=== PATIENT | female | born 1960 | race Caucasian/White ===

== ENCOUNTER 2016-11-17 06:21 | Emergency (ER) | payer BC ==
[2016-11-17] MEDS ORDERED: KETOROLAC 60 MG/2 ML VIAL IVP STA (07:07)
[2016-11-17] MEDS ORDERED: diphenhydrAMINE 50 MG/ML 1 ML VIAL IVP STA (07:07)
[2016-11-17] MEDS ORDERED: PROMETHAZINE INJ 25 MG/ML 1 ML VIAL IM STA (07:07)
[2016-11-17] MEDS ORDERED: SODIUM CHLORIDE 0.9% 500 ML IV ONE (07:10)
--- NOTE | 2016-11-17 07:10 | ED ---
General Adult HPI - General Chief complaint: Headache Stated complaint: Headache Time Seen by Provider: 11/17/16 07:00 Source: patient, family, RN notes reviewed Mode of arrival: ambulatory Limitations: no limitations - History of Present Illness Initial comments: This is a 56-year-old female sent to the emergency department with a past medical history significant for multiple episodes of occipital neuralgia. Patient states she's just moved to [place] from [place]. Patient states the pain as starting in the right occipital region and radiates to the parietal region of the head. This is typical of her occipital neuralgia Patient states she has no vomiting but she is mildly nauseated. Patient states does have some light sensitivity. Patient states in the past Tegretol is worked but she did not like the side effects. Patient denies any fevers or chills patient denies any neck stiffness. Patient denies any chest pain difficulty breathing or shortness of breath per patient denies abdominal pain patient denies any dysuria hematuria urinary frequency. - Related Data Home Medications Medication Instructions Recorded Confirmed Albuterol Inhaler [Ventolin Hfa 1 - 2 puff INHALATION RT-Q6H PRN 11/17/16 Inhaler] Aspirin 81 mg PO HS 11/17/16 11/17/16 Cinnamon/Chromium 1000mg/400mcg 2 tab PO DAILY 11/17/16 11/17/16 Desvenlafaxine Succinate [Pristiq] 50 mg PO DAILY 11/17/16 11/17/16 Estradiol 0.5 mg PO DAILY 11/17/16 11/17/16 Fenofibrate [Lofibra] 160 mg PO HS 11/17/16 11/17/16 Hydrochlorothiazide [Hydrodiuril] 25 mg PO DAILY 11/17/16 11/17/16 Levothyroxine Sodium [Synthroid] 50 mcg PO DAILY 11/17/16 11/17/16 Losartan [Cozaar] 50 mg PO DAILY 11/17/16 11/17/16 Metoprolol Succinate (ER) [Toprol 100 mg PO DAILY 11/17/16 11/17/16 Xl] Montelukast Sodium [Singulair] 10 mg PO HS 11/17/16 11/17/16 Naltrexone HCl/Bupropion HCl 1 tab PO BID 11/17/16 11/17/16 [Contrave ER 8-90 mg Tablet] [place]-3 Fatty Acids/Fish Oil [Fish 1 cap PO BID 11/17/16 11/17/16 Oil 1,000 mg Softgel] Potassium Chloride [Klor-Con 10] 10 meq PO DAILY 11/17/16 11/17/16 Ubidecarenone [Co Q-10] 200 mg PO HS 11/17/16 11/17/16 glipiZIDE [Glucotrol] 5 mg PO DAILY 11/17/16 11/17/16 Allergies Allergy/AdvReac Type Severity Reaction Status Date / Time morphine Allergy Nausea & Verified 11/17/16 07:26 Vomiting Review of Systems ROS Statement: Those systems with pertinent positive or pertinent negative responses have been documented in the HPI. ROS Other: All systems not noted in ROS Statement are negative. Past Medical History Past Medical History: Diabetes Mellitus, Hyperlipidemia, Hypertension, Thyroid Disorder Additional Past Medical History / Comment(s): headaches, depression History of Any Multi-Drug Resistant Organisms: None Reported Past Surgical History: Hysterectomy Past Psychological History: Anxiety, Depression Smoking Status: Former smoker Past Alcohol Use History: Occasional Past Drug Use History: None Reported General Exam - General Exam Comments Initial Comments: GENERAL: Patient is well-developed and well-nourished. Patient is nontoxic and well- hydrated and is in mild distress. ENT: Neck is soft and supple. No significant lymphadenopathy is noted. Oropharynx is clear. Moist mucous membranes. Neck has full range of motion without eliciting any pain. EYES: The sclera were anicteric and conjunctiva were pink and moist. Extraocular movements were intact and pupils were equal round and reactive to light. Eyelids were unremarkable. PULMONARY: Unlabored respirations. Good breath sounds bilaterally. No audible rales rhonchi or wheezing was noted. CARDIOVASCULAR: There is a regular rate and rhythm without any murmurs gallops or rubs. ABDOMEN: Soft and nontender with normal bowel sounds. No palpable organomegaly was noted. There is no palpable pulsatile mass. SKIN: Skin is clear with no lesions or rashes and otherwise unremarkable. NEUROLOGIC: Patient is alert and oriented x3. Cranial nerves II through XII are grossly intact. Motor and sensory are also intact. Normal speech, volume and content. Symmetrical smile. MUSCULOSKELETAL: Normal extremities with adequate strength and full range of motion. PSYCHIATRIC: Normal psychiatric evaluation. Normal interpersonal interactions appears functionally intact in deals appropriately with others. No signs of depression. No signs of anxiety. Limitations: no limitations Course Vital Signs 11/17/16 11/17/16 06:23 08:19 Temperature 97 F L 98.1 F Pulse Rate 81 78 Respiratory 20 15 Rate Blood Pressure 184/84 172/79 O2 Sat by Pulse 97 98 Oximetry Medical Decision Making - Medical Decision Making I have gone back into the room on 2 different occasions to evaluate the patient after medicines were given. Patient was sleeping when I entered the room when I awoke her I asked her what her pain level was and she said it was only slightly improved on both occasions. I ordered some DHE for the patient and when I went back by the room again the patient was again sleeping he was at this time I told her that after she received the DHE she would be going home Disposition Clinical Impression: Acute headache Disposition: HOME SELF-CARE Condition: Good Instructions: Acute Headache (ED) Additional Instructions: Patient should stop taking her new medication for weight loss Referrals: Nonstaff,Physician [Primary Care Provider] - 1-2 days Time of Disposition: 08:24
[2016-11-17] MEDS ORDERED: DIHYDROERGOTAMINE MESYLATE 1 MG/ML 1 ML AMP IVP STA (08:18)
[2016-11-17] MEDS ORDERED: ACETAMINOPHEN IV (For NPO) 1,000 MG in SALINE 100 100ML.BAG IVPB STA (08:50)
[2016-11-17 10:24] VITALS: BP 141/62; PULSE 68; RESP 14; TEMP 97.1
--- NOTE | 2016-11-17 10:28 | CT ---
EXAMINATION TYPE: CT brain wo con DATE OF EXAM: 11/17/2016 10:17 AM COMPARISON: NONE HISTORY: Patient complains of right side headache. CT DLP: 945.5 mGycm. Automated Exposure Control for Dose Reduction was Utilized. TECHNIQUE: CT scan of the head is performed without contrast. FINDINGS: There is no acute intracranial hemorrhage, mass effect, or midline shift identified. The ventricles and sulci are within normal limits in size. The globes are intact and the visualized sin uses are clear. IMPRESSION: No acute intracranial hemorrhage, mass effect, or midline shift is seen.
== END 2016-11-17 10:54 | disposition home or self-care (01) ==
LOC: EC 06:21
DX: R51 Headache (principal); E11.9 Type 2 diabetes mellitus without complications; E78.5 Hyperlipidemia, unspecified; I10 Essential (primary) hypertension; E07.9 Disorder of thyroid, unspecified; F32.9 Major depressive disorder, single episode, unspecified; F41.9 Anxiety disorder, unspecified; Z87.891 Personal history of nicotine dependence; Z79.82 Long term (current) use of aspirin; Z79.899 Other long term (current) drug therapy; Z79.3 Long term (current) use of hormonal contraceptives; Z79.84 Long term (current) use of oral hypoglycemic drugs; Z88.5 Allergy status to narcotic agent
CPT/HCPCS: 96375 ×4; 96361 ×2; 96372 ×2; 96374 ×2; 99284 ×2; 70450; J1110; J1200; J2550; J1885; J0131

== ENCOUNTER → 2018-04-08 | Outpatient (CLI) | payer BC ==
--- NOTE | 2018-04-08 20:06 | CONS ---
CONSULTATION DATE OF SERVICE: 04/08/2018. HISTORY: A 57-year-old lady, has been evaluated in Sleep Center for obstructive sleep apnea- hypopnea syndrome. HISTORY OF PRESENT ILLNESS/SLEEP-AWAKE EVALUATION: The patient has been diagnosed with obstructive sleep apnea-hypopnea syndrome in [place] in around 2011. Since that time she is on treatment with CPAP every night for the whole night. Without CPAP she snores and has episodes of stopped breathing. With CPAP, she sleeps well without snoring. Sleep schedule presently is from around 1:30 a.m. until 9 a.m. on weekdays and from 11:00 p.m. to 9:00 a.m. on weekends. No problems with falling asleep, although she has TV set in bedroom. She sleeps usually on the back position. She may have episodes of dry mouth and sweating, may wake up from sleep once with nocturia. Sometimes she sees vivid dreams, usually in the morning hours. Sometimes during extreme laughter she may feel some weakness in her body. [place] Sleepiness Scale is 6, which is in normal range. PAST MEDICAL HISTORY: Positive for stroke in 2007 with left-sided weakness at that time, hypothyroidism, hypertension, diabetes, hyperlipidemia, asthma. MEDICATIONS: 1. Synthroid. 2. Metoprolol. 3. Klor-Con. 4. Fenofibrate. PAST SURGICAL HISTORY: Partial hysterectomy in 2009. SOCIAL HISTORY: Positive for smoking up to 2 packs per day for 20 years, quit around 9 years ago. Alcohol consumption occasional. FAMILY HISTORY: Hypertension, hyperlipidemia, stroke, asthma, sinus headaches, sleep apnea, pneumonia, thyroid problem, diabetes, liver problems, ulcers. REVIEW OF SYSTEMS: Presently no significant complaints. The patient does not offer any physical complaints. The patient denies any rashes or other skin problems. The patient does not report any joint pain, swelling, or restriction of movement. The patient denies any headaches, any visual problems, hearing loss, sore throat. Denies any pain on breathing, shortness of breath, cough, wheezing, hemoptysis, night sweats. The patient also denies chest pain or distress, palpitations, dyspnea, orthopnea, edema, history of hypertension, history of myocardial infarction. Denies nausea, vomiting, diarrhea, hematemesis, and melena. Denies hemorrhoids or ulcers. Denies any genitourinary problems. Does not report any history of seizures. PHYSICAL EXAMINATION: The patient is a lady, without distress. VITAL SIGNS: Blood pressure 141/73, HR 88, RR 16, height 5 feet 4-1/2 inches, weight is 257, BMI 43.4, temperature 98.0, oxygen saturation on room air 97%. HEENT: Oropharynx low position of soft palate. Slight restriction of nasal breathing. NECK: 15-1/2 inches in circumference. LUNGS: Clear to auscultation bilaterally. HEART: S1, S2 can be heard, no gallops, rubs, or murmurs. ABDOMEN: Obese, soft, nontender, no organomegaly, bowel sounds are heard in all four quadrants. EXTREMITIES: No cyanosis, clubbing, or edema, peripheral pulses are palpable. CRANIAL NERVES: II to XII are intact. FLEET SERVICE CLERK: There are no gross sensory or motor deficits, DTRS 2+ bilaterally. MUSCULOSKELETAL: Muscle strength is symmetrical. IMPRESSION: 1. History of obstructive sleep apnea-hypopnea syndrome for 7 years. The patient is on treatment with CPAP every night, reading from machine indicated 100% compliance with treatment, benefitting from treatment. Normal breathing while patient is on machine by the reading from the machine. Apnea-hypopnea index 1.1. CPAP pressure is 13 cm of water. Average usage per night, 8.9 hours. 2. Obesity, BMI 43.4. 3. History of stroke in 2007 without significant residual deficit. 4. Hypothyroidism. 5. Hypertension. 6. Diabetes mellitus. 7. Hyperlipidemia. 8. History of asthma. PLAN: 1. Patient will continue to use his CPAP equipment every night for the whole night with the same pressure. 2. Losing weight. 3. Sleep hygiene with time in bed for at least 8 hours. 4. No driving if feeling sleepiness. 5. Prescription for all necessary CPAP supplies and clinic mask tube filters. Thank you very much for allowing me to participate in management of the patient. Sincerely, Liang Roth MD, PhD, FAASM Diplomat of [place] [employer] [place] [employer] Automotive Window Tinter of [facility] [place] MMODL / IJN: [id number] /
== END | disposition home or self-care (01) ==
LOC: SLEEP 16:12
PROVIDERS: ATTEND Internal Medicine
DX: G47.33 Obstructive sleep apnea (adult) (pediatric) (principal); E03.9 Hypothyroidism, unspecified; E11.9 Type 2 diabetes mellitus without complications; I10 Essential (primary) hypertension; E78.5 Hyperlipidemia, unspecified; E66.9 Obesity, unspecified; Z68.41 Body mass index [BMI] 40.0-44.9, adult; Z87.09 Personal history of other diseases of the respiratory system; Z86.73 Personal history of transient ischemic attack (TIA), and cerebral infarction without residual deficits; Z90.710 Acquired absence of both cervix and uterus; Z87.891 Personal history of nicotine dependence; Z79.899 Other long term (current) drug therapy; Z99.89 Dependence on other enabling machines and devices
CPT/HCPCS: 99211

== ENCOUNTER → 2019-05-12 | Outpatient (CLI) | payer BC ==
--- NOTE | 2019-05-12 17:23 | PN ---
PROGRESS NOTE DATE OF SERVICE: 05/12/2019 This patient is a 58-year-old lady who has been followed in Sleep Center for treatment of obstructive sleep apnea-hypopnea syndrome. Patient successfully continues to use her CPAP equipment every night for the whole night. She likes her mask but feels that the size of the mask should be slightly smaller. [place] Sleepiness Scale today is 4, which is normal. I checked her CPAP unit. CPAP pressure is 13 cm of water. Usage is every night for more than 4 hours with average usage 8.1 hours. For 365 nights, the patient used it 363 nights, which is great compliance. Leak is 70 L/minute, which is acceptable. Apnea- hypopnea index is only 1.4, which is absolutely normal. MEDICATIONS: 1. Synthroid. 2. Metoprolol. 3. Fenofibrate. 4. Losartan. 5. Desvenlafaxine. 6. Cinnamon. 7. Contrave. 8. Hydrochlorothiazide. 9. Glipizide. 10.Estradiol. 11.Montelukast. 12.Simvastatin. 13.Aspirin. 14. . 15.Ventolin. 16.Lasix. PHYSICAL EXAMINATION: GENERAL: A pleasant patient in no distress. VITAL SIGNS: BP 124/78, HR 76, RR 16, height 5 feet 4 inches, weight 250 pounds, which is 7 pounds less than during the last visit, body mass index 42.5, temperature 97.5, oxygen saturation at room air 98%. HEENT: PERRLA, EOMI. Evaluation of oropharynx showed tongue protrudes midline. Low position of soft palate. Mallampati III. NECK: Supple. No JVD. Thyroid is not palpable. LUNGS: Clear to percussion and to auscultation. Good air exchange. No wheezing or rhonchi. HEART: S1, S2 regular. No murmurs, gallops or rubs. ABDOMEN: Obese. EXTREMITIES: No clubbing or cyanosis. ORACLE HYPERION CONSULTANT: Awake, alert, and oriented X3. Cranial nerves 2 to 7 intact. There is no fasciculation or atrophy. noted. No focal deficits observed. IMPRESSION: 1. Obstructive sleep apnea-hypopnea syndrome. The patient demonstrated 100% compliance with treatment, benefitting from treatment. 2. Obesity. 3. History of stroke in 2007 without significant residual deficit. 4. Hypothyroidism. 5. Hypertension. 6. Diabetes mellitus. 7. Hyperlipidemia. 8. History of asthma. PLAN: 1. Patient will continue to use her CPAP equipment every night for the whole night. 2. We will try Simplus full-face mask but small size. 3. Prescription for all necessary CPAP supplies, including mask, heated tube and filters. 4. Losing weight. 5. No driving if feeling any sleepiness. 6. Follow-up visit in one year, or earlier if patient has any problems. Thank you very much for allowing me to participate in the management of your patient. Sincerely, Liang Roth MD, PhD, FAASM Diplomat of [employer] Fishing Instructor of [facility] [place] MMODL / IJN: [id number] /
== END | disposition home or self-care (01) ==
LOC: SLEEP 15:47
PROVIDERS: ATTEND Internal Medicine
DX: G47.33 Obstructive sleep apnea (adult) (pediatric) (principal); E66.9 Obesity, unspecified; E03.9 Hypothyroidism, unspecified; I10 Essential (primary) hypertension; E78.5 Hyperlipidemia, unspecified; E11.9 Type 2 diabetes mellitus without complications; Z68.41 Body mass index [BMI] 40.0-44.9, adult; Z87.09 Personal history of other diseases of the respiratory system; Z86.73 Personal history of transient ischemic attack (TIA), and cerebral infarction without residual deficits; Z99.89 Dependence on other enabling machines and devices; Z79.82 Long term (current) use of aspirin; Z79.84 Long term (current) use of oral hypoglycemic drugs; Z79.52 Long term (current) use of systemic steroids; Z79.899 Other long term (current) drug therapy

== ENCOUNTER → 2020-08-01 | Outpatient (CLI) | payer BC ==
--- NOTE | 2020-08-02 00:44 | SFUN ---
SLEEP CENTER FOLLOW UP NOTE DATE OF SERVICE: 08/01/2020 A 59-year-old lady had been followed in sleep center for treatment of obstructive sleep apnea-hypopnea syndrome. Patient continued to use her CPAP equipment every night for the whole night. Sleeps well with the machine, changing her mask. [place] Sleepiness Scale today is 8. I checked her CPAP unit. CPAP pressure is 13 cm of water. Usage is 30 out of 30 nights for more than 4 hours. Average usage 11 hours per night. Leak is 11 L/minute. Apnea- hypopnea index 1.6, which is normal. Recently, patient had surgery and she explained that she sleeps more because of the surgery recently. MEDICATIONS: Synthroid 75 mcg once a day, fenofibrate 160 mg once a day, losartan 50 mg once a day, Klor-Con 10 mEq once a day, metoprolol 100 mg once a day, Estradiol 0.5 mg once a day, desvenlafaxine 50 mg once a day, Singulair 10 mg once a day, simvastatin 20 mg once a day, glipizide 5 mg once a day, hydrochlorothiazide 25 mg once a day, Trulicity 1.5 mg once a week. PHYSICAL EXAMINATION: GENERAL: Patient in no distress. VITAL SIGNS: BP 167/77, HR 75, RR 15, height 5 feet 5 inches, weight 250, BMI 41.6, temperature 98.3, oxygen saturation at room air 100%. HEENT: PERRLA, EOMI. Oropharynx low position of soft palate, Mallampati 3. NECK: Supple, no JVD. Thyroid is not palpable. LUNGS: Clear to percussion and to auscultation. Good air exchange. No wheezing or rhonchi. HEART: S1, S2 regular. No murmurs, gallops, or rubs. ABDOMEN: Obese. EXTREMITIES: No clubbing or cyanosis. SENIOR CONTROLS ENGINEER: Awake, alert, and oriented X3. Cranial nerves 2 to 7 intact. There is no fasciculation or atrophy. noted. No focal deficits observed. IMPRESSION: 1. Obstructive sleep apnea-hypopnea syndrome. The patient demonstrated great compliance with treatment benefitting from treatment. 2. Obesity. 3. History of stroke in 2007 without residual deficit. 4. Hypertension. 5. Hypothyroidism. 6. Diabetes mellitus. 7. Hyperlipidemia. 8. History of asthma. PLAN: 1. Patient will continue to use PAP equipment every night for the whole night. 2. Sleep hygiene with regular time in bed for at least 7-1/2 to 8 hours. 3. Precautions related to driving. No driving if feeling sleepiness. 4. I will maintain all necessary prescription for PAP supplies including mask, tube, filters. 5. Watching weight. 6. No driving if feeling sleepiness. 7. Follow-up visit in 6 months or earlier if patient has any problems. Thank you very much for allowing me to participate in management of your patient. Sincerely, Liang Roth MD, PhD, FAASM Diplomat of [place] [employer] [employer] Principal Network Architect of [facility] [place] MMODL / IJN: [id number] /
== END | disposition home or self-care (01) ==
LOC: SLEEP 14:24
PROVIDERS: ATTEND Internal Medicine
DX: G47.33 Obstructive sleep apnea (adult) (pediatric) (principal); E66.9 Obesity, unspecified; I10 Essential (primary) hypertension; E03.9 Hypothyroidism, unspecified; E11.9 Type 2 diabetes mellitus without complications; E78.5 Hyperlipidemia, unspecified; Z99.89 Dependence on other enabling machines and devices; Z86.73 Personal history of transient ischemic attack (TIA), and cerebral infarction without residual deficits; Z87.09 Personal history of other diseases of the respiratory system

== ENCOUNTER → 2021-03-13 | Outpatient (CLI) | payer BC ==
--- NOTE | 2021-03-13 21:46 | SFUN ---
SLEEP CENTER FOLLOW UP NOTE DATE OF SERVICE: 03/13/2021 A 60-year-old lady has been followed in Sleep Center for treatment of obstructive sleep apnea-hypopnea syndrome. The patient continues to use her CPAP equipment every night and getting her supplies in time. No snoring on CPAP. [place] Sleepiness Scale today is 9, which is close to the border. I checked her CPAP unit. Pressure is 13 cm of water. Usage is 30/30 nights for more than 4 hours with average usage 8.5 hours per night, which is great compliance. Leak is 13 L/minutes which is borderline. Apnea-hypopnea index is 1.5, which is perfect. MEDICATIONS: Synthroid 75 mcg once a day. Losartan 50 mg once a day. Simvastatin 20 mg once a day. Montelukast 10 mg once a day. Bupropion 150 mg twice a day. Trulicity 1.5 mg subcutaneous injection once a week, 50 mg once a day, hydrochlorothiazide 25 mg once a day. Metoprolol 100 mg once a day. 0.5 mg once a day. Fenofibrate 160 mg once a day, albuterol on p.r.n. basis, glipizide 5 mg on p.r.n. basis. PHYSICAL EXAMINATION: GENERAL: Patient in no distress. BP 155/74, HR 74, RR 15, height 5 feet 5 inches, weight 249.6, which is about the same as a during the last visit. Body mass index 41.4, temperature 97.5, oxygen saturation at room air 98%. HEENT: PERRLA, EOMI, evaluation of oropharynx showed oropharynx low position of soft palate. Mallampati 3. NECK: Supple, no JVD. Thyroid is not palpable. LUNGS: Clear to percussion and to auscultation. Good air exchange. No wheezing or rhonchi. HEART: S1, S2 regular. No murmurs, gallops, or rubs. ABDOMEN: Obese. Soft and nontender. Bowel sounds are present. No organomegaly appreciated. EXTREMITIES: No clubbing or cyanosis. LODGE ATTENDANT: Awake, alert, and oriented X3. Cranial nerves 2 to 7 intact. There is no fasciculation or atrophy. noted. No focal deficits observed. IMPRESSION: 1. Obstructive sleep apnea-hypopnea syndrome. Patient demonstrated 100% compliance with treatment benefitting from treatment. 2. Obesity. 3. History of stroke in 2007 without residual deficit. 4. Hypertension. 5. Hypothyroidism. 6. Diabetes mellitus. 7. Hyperlipidemia. 8. History of asthma. PLAN: 1. Patient should change position of her CPAP unit, which should stay lower than her head otherwise it may increase risk of choking with the water, which may go to the nose. 2. Patient will continue to use PAP equipment every night for the whole night. 3. Sleep hygiene with regular time in bed for at least 7-1/2 to 8 hours. 4. Precautions related to driving. No driving if feeling sleepiness. 5. I will maintain all necessary prescription for PAP supplies including mask, tube, filters. 6. Watching weight. 7. Follow-up visit in 6 months or earlier if patient has any problems. I spent with the patient and the documentation of her visit for more than 30 minutes. Thank you very much for allowing me to participate in management of your patient. Sincerely, Liang Roth MD, PhD, FAASM Diplomat of [place] [employer] Shellfish Dredge Operator of [facility] [place] MMODL / FELTONN: [id number] /
== END ==
LOC: SLEEP 14:27
PROVIDERS: ATTEND Internal Medicine
DX: G47.33 Obstructive sleep apnea (adult) (pediatric) (principal); E66.9 Obesity, unspecified; I10 Essential (primary) hypertension; E03.9 Hypothyroidism, unspecified; E78.5 Hyperlipidemia, unspecified; E11.9 Type 2 diabetes mellitus without complications; J45.909 Unspecified asthma, uncomplicated; Z86.73 Personal history of transient ischemic attack (TIA), and cerebral infarction without residual deficits; Z79.4 Long term (current) use of insulin; Z79.899 Other long term (current) drug therapy; Z99.81 Dependence on supplemental oxygen; Z87.891 Personal history of nicotine dependence; Z88.5 Allergy status to narcotic agent

== ENCOUNTER → 2021-10-10 | Outpatient (CLI) | payer BC ==
--- NOTE | 2021-10-10 17:30 | SFUN ---
SLEEP CENTER FOLLOW UP NOTE DATE OF SERVICE: 10/10/2021 61-year-old lady has been followed in Sleep Center for treatment of obstructive sleep apnea-hypopnea syndrome. Patient continued to use his CPAP equipment every night, getting his CPAP supplies in time. [place] Sleepiness Scale today is 7. I checked CPAP unit. Pressure is 13 cm of water, usage 30/30 nights for more than 4 hours. Average usage 9.3 hours per night. Leak is 11 L/minute, which is normal range. Apnea-hypopnea index is 1.2 which is also normal. MEDICATIONS: Glipizide 5 mg twice a day, hydrochlorothiazide 25 mg once a day, losartan 50 mg once a day, metoprolol 100 mg once a day. Pristiq 50 mg once a day. Wellbutrin 150 mg once a day, aspirin 81 mg once a day, Estrogel 0.5 mg once a day, Synthroid 75 mcg once a day, fenofibrate 160 mg once a day, simvastatin 20 mg once a day, montelukast 10 mg once a day. PHYSICAL EXAMINATION: GENERAL: Patient in no distress. BP 161/86, HR 78, RR 16, height 5 feet 5 inches, weight 254 pounds body mass index 42.2. The patient increased her weight on about 5 pounds since previous visit. Temperature 98.0, oxygen saturation at room air 98%. Oropharynx: Low position of soft palate, Mallampati 3. NECK: Supple, no JVD. Thyroid is not palpable. LUNGS: Clear to percussion and to auscultation. Good air exchange. No wheezing or rhonchi. HEART: S1, S2 regular. No murmurs, gallops, or rubs. ABDOMEN: Obese. Soft and nontender. Bowel sounds are present. No organomegaly appreciated. EXTREMITIES: No clubbing or cyanosis. LAWYER REAL ESTATE: Awake, alert, and oriented X3. Cranial nerves 2 to 7 intact. There is no fasciculation or atrophy. noted. No focal deficits observed. IMPRESSION: 1. Obstructive sleep apnea-hypopnea syndrome. Patient demonstrated great compliance with treatment. Normal respiration on CPAP. 2. History of stroke in 2007 without residual deficit. 3. Obesity, the patient increased weight 5 pounds compared to the previous visit. 4. Hypertension. 5. Hypothyroidism. 6. Diabetes mellitus. 7. Hyperlipidemia. 8. History of asthma. PLAN: 1. Patient will continue to use PAP equipment every night for the whole night. 2. Sleep hygiene with regular time in bed for at least 7-1/2 to 8 hours. 3. Precautions related to driving. No driving if feeling sleepiness. 4. I will maintain all necessary prescription for PAP supplies including mask, tube, filters. 5. Watching weight. 6. Follow-up visit in 6 months or earlier if patient has any problems. Thank you very much for allowing me to participate in management of your patient. Sincerely, Liang Roth MD, PhD, FAASM Diplomat of [place] [employer] Sleep Medicine Board of [place] [employer] Grinder Setup Operator of [facility] [place] MMODL / IJN: [id number] /
== END ==
LOC: SLEEP 16:17
PROVIDERS: ATTEND Internal Medicine
DX: G47.33 Obstructive sleep apnea (adult) (pediatric) (principal); E66.9 Obesity, unspecified; I10 Essential (primary) hypertension; E03.9 Hypothyroidism, unspecified; E11.9 Type 2 diabetes mellitus without complications; E78.5 Hyperlipidemia, unspecified; J45.909 Unspecified asthma, uncomplicated; Z86.73 Personal history of transient ischemic attack (TIA), and cerebral infarction without residual deficits; Z79.84 Long term (current) use of oral hypoglycemic drugs; Z79.890 Hormone replacement therapy; Z79.899 Other long term (current) drug therapy; Z87.891 Personal history of nicotine dependence; Z88.5 Allergy status to narcotic agent; Z68.41 Body mass index [BMI] 40.0-44.9, adult

== ENCOUNTER → 2022-10-15 | Outpatient (CLI) | payer BC ==
--- NOTE | 2022-10-15 14:15 | P.PN ---
Subjective DATE: 10/15/2022 FOLLOW UP VISIT. Patient with obstructive sleep apnea hypopnea syndrome return to sleep center for follow-up visit. Information from previous visit have been reviewed. Patient is using PAP equipment every night for the whole night, getting PAP supplies in time. The patient does not have significant problems with the mask, PAP unit and humidification. [place] sleepiness scale is 9, which is borderline. I checked information from PAP unit. PAP unit pressure 13 cm H2O. Usage is 100 % for more then 4 hours, average 9.3 hours per night. Leak is 18 l/m, which is in acceptable range. Apnea Hypopnea Index is 1.3, which is normal. Hemoglobin A1c according to patient now 5.8 MEDICATIONS:1. Crestor 20 mg once a day 2. Venlafaxine 50 mg once a day 3. Fenofibrate 160 mg once a day 4. Hydrochlorothiazide 25 mg once a day 5. Losartan 50 mg once a day 6. Montelucast 10 mg once a day 7. Synthroid 75 g once a day 8. Albuterol During physical exam: GENERAL: A pleasant patient without any distress. VITAL SIGNS: BP 166/72, HR 79, RR 15 , weight 260.4, temperature 97.6, oxygen saturation at room air 93 % . HEENT: PERRLA, EOMI.low position of soft palate, Mallapati 3 . NECK: Supple. No JVD. LUNGS: Clear to percussion and to auscultation. Good air exchange. No wheezing or rhonchi. HEART: S1, S2 regular. ABDOMEN: Soft and nontender. Obese EXTREMITIES: No clubbing or cyanosis. STARS ANALYTICAL LEAD: Awake, alert, and oriented x3. No focal deficit. Impressions: 1. Obstructive sleep apnea-hypopnea syndrome. Patient demonstrated great compliance with treatment, benefiting from treatment. 2. Hypertension. 3. Diabetes mellitus. 4. Hypothyroidism. 5. History of stroke in 2007. 6. History of asthma. 7. Hyperlipidemia. Plan: 1. Continue using PAP equipment every night for the whole night. 2. To change air filter at least 1-2 times per month. 3. PAP unit should stay lower then position of the head. 4. Advised patient to remove all remaining water from humidifier canister daily and make it dry after each usage. Refill canister with fresh distilled water before each usage. 5. Sleep hygiene with regular time in bed for at least 8 hours. 6. Precautions related to driving. No driving if feel any sleepiness. 7. I will maintain prescription for PAP supplies including mask, tube, filters. 8. Follow up visit in 6 months or earlier if patient has any problems. 9. Watching and losing weight. Thank you very much for allowing me to participate in the management of your patient. Liang Roth MD, PhD, FAASM. Diplomat of [place] [employer], Sleep Medicine Board by [employer] Government Documents Librarian of [facility] [place]
== END ==
LOC: SLEEP 13:12
PROVIDERS: ATTEND Internal Medicine
DX: G47.33 Obstructive sleep apnea (adult) (pediatric) (principal); I10 Essential (primary) hypertension; E11.9 Type 2 diabetes mellitus without complications; E03.9 Hypothyroidism, unspecified; Z86.73 Personal history of transient ischemic attack (TIA), and cerebral infarction without residual deficits; J45.909 Unspecified asthma, uncomplicated; E78.5 Hyperlipidemia, unspecified; Z99.89 Dependence on other enabling machines and devices; Z79.890 Hormone replacement therapy; Z88.5 Allergy status to narcotic agent; Z87.891 Personal history of nicotine dependence
CPT/HCPCS: 99212

== ENCOUNTER → 2023-05-07 | Outpatient (CLI) | payer BC ==
--- NOTE | 2023-05-07 18:14 | P.PN ---
Subjective DATE: 05/07/2023 FOLLOW UP VISIT. Patient with obstructive sleep apnea hypopnea syndrome return to sleep center for follow-up visit. Information from previous visit have been reviewed. Patient is using PAP equipment every night for the whole night, getting PAP supplies in time. The patient does not have significant problems with the mask, PAP unit and humidification. [place] sleepiness scale is 6, which is normal. I checked information from PAP unit. PAP unit pressure 13 cm H2O. Usage is 100 % for more then 4 hours, average 8.6 hours per night. Leak is 24 l/m, which is in acceptable range. Apnea Hypopnea Index is 1.1, which is normal. Motor live expectancy have been exceeded of CPAP unit. MEDICATIONS:1. Bupropion 150 mg twice a day 2. Crestor 20 mg once a day 3. Glipizide 5 mg twice a day 4. Hydrochlorothiazide 25 mg once a day 5. Losartan 50 mg once a day 6. Metoprolol 100 mg once a day 7. Montelucast 10 mg once a day 8. Synthroid 75 g once a day During physical exam: GENERAL: A pleasant patient without any distress. VITAL SIGNS: BP 174/84, HR 78, RR 12, weight 263.6, temperature 98.3, oxygen saturation at room air 97 % . HEENT: PERRLA, EOMI.low position of soft palate, Mallapati 3. NECK: Supple. No JVD. LUNGS: Clear to percussion and to auscultation. Good air exchange. No wheezing or rhonchi. HEART: S1, S2 regular. ABDOMEN: Soft and nontender. Slightly obese EXTREMITIES: No clubbing or cyanosis. STAMPING PRESS OPERATOR: Awake, alert, and oriented x3. No focal deficit. Impressions: 1. Obstructive sleep apnea-hypopnea syndrome. Patient demonstrated great compliance with treatment, benefiting from treatment. 2. Obesity, body mass index 44.4. 3. Hypertension. 4. Diabetes mellitus. 5. History of asthma. 6. History of stroke in 2007. 7. Hyperlipidemia. Plan: 1. Continue using PAP equipment every night for the whole night. Prescription for new CPAP unit. 2. To change air filter at least 1-2 times per month. 3. PAP unit should stay lower then position of the head. 4. Advised patient to remove all remaining water from humidifier canister daily and make it dry after each usage. Refill canister with fresh distilled water before each usage. 5. Sleep hygiene with regular time in bed for at least 8 hours. 6. Precautions related to driving. No driving if feel any sleepiness. 7. I will maintain prescription for PAP supplies including mask, tube, filters. 8. Watching and losing weight. 9. Follow up visit in 2 months after patient will get new CPAP unit to evaluate clinical response on treatment and compliance with treatment. Thank you very much for allowing me to participate in the management of your patient. Liang Roth MD, PhD, FAASM. Diplomat of [place] [employer], Sleep Medicine Board by [employer] Medicine Detail Manager of [facility] [place]
== END ==
LOC: 3 N SLEEP 15:05
PROVIDERS: ATTEND Internal Medicine
DX: G47.33 Obstructive sleep apnea (adult) (pediatric) (principal); E11.9 Type 2 diabetes mellitus without complications; J45.909 Unspecified asthma, uncomplicated; E78.5 Hyperlipidemia, unspecified; E66.9 Obesity, unspecified; I10 Essential (primary) hypertension; Z86.73 Personal history of transient ischemic attack (TIA), and cerebral infarction without residual deficits; Z68.41 Body mass index [BMI] 40.0-44.9, adult; Z79.84 Long term (current) use of oral hypoglycemic drugs; Z79.899 Other long term (current) drug therapy; Z79.51 Long term (current) use of inhaled steroids; Z87.891 Personal history of nicotine dependence; Z88.5 Allergy status to narcotic agent
CPT/HCPCS: 99212

== ENCOUNTER → 2023-07-02 | Outpatient (CLI) | payer BC ==
--- NOTE | 2023-07-02 16:44 | P.PN ---
Subjective DATE: 07/02/2023 FOLLOW UP VISIT. Patient with obstructive sleep apnea hypopnea syndrome return to sleep center for follow-up visit. Information from previous visit have been reviewed. This is first visit after patient received new CPAP unit. Patient is using PAP equipment every night for the whole night, getting PAP supplies in time. The patient does not have significant problems with the mask, PAP unit and humidification. [place] sleepiness scale is, which is normal. I checked information from PAP unit. PAP unit pressure 13 cm H2O. Usage is 100 % for more then 4 hours, average 8.5 hours per night. Leak is 30.7 l/m, which is in acceptable range. Apnea Hypopnea Index is 1.2, which is normal. MEDICATIONS:1. Crestor 20 mg once a day 2. Glipizide 5 mg twice a day 3. Hydrochlorothiazide 25 mg once a day 4. Losartan 50 mg once a day 5. Metoprolol 100 mg once a day 6. Singulair 10 mg once a day 7. Synthroid 75 g once a day 8. Bupropion 150 mg twice a day During physical exam: GENERAL: A pleasant patient without any distress. VITAL SIGNS: BP 167/83, HR 69, RR 16 , weight 263.4, temperature 97.9, oxygen saturation at room air 97 % . HEENT: PERRLA, EOMI.low position of soft palate, Mallapati 3 . NECK: Supple. No JVD. LUNGS: Clear to percussion and to auscultation. Good air exchange. No wheezing or rhonchi. HEART: S1, S2 regular. ABDOMEN: Soft and nontender.[] EXTREMITIES: No clubbing or cyanosis. CLINICAL PSYCHOLOGIST PRIVATE PRACTICE: Awake, alert, and oriented x3. No focal deficit. Impressions: 1. Obstructive sleep apnea-hypopnea syndrome. Patient demonstrated great compliance with treatment, benefiting from treatment. 2. Obesity. 3. Hypertension diabetes mellitus. 4. Diabetes mellitus. 5. History of stroke in 2007. 6. Hyperlipidemia. 7. History of asthma. Plan: 1. Continue using PAP equipment every night for the whole night. 2. To change air filter at least 1-2 times per month. 3. PAP unit should stay lower then position of the head. 4. Advised patient to remove all remaining water from humidifier canister daily and make it dry after each usage. Refill canister with fresh distilled water before each usage. 5. Sleep hygiene with regular time in bed for at least 8 hours. 6. Precautions related to driving. No driving if feel any sleepiness. 7. I will maintain prescription for PAP supplies including mask, tube, filters. 8. Follow up visit in 6 months or earlier if patient has any problems. 9. Watching weight. Thank you very much for allowing me to participate in the management of your patient. Liang Roth MD, PhD, FAASM. Diplomat of [place] [employer], Sleep Medicine Board by [place] [employer] Cigar Head Perforator of [facility] [place]
== END ==
LOC: 3 N SLEEP 15:52
PROVIDERS: ATTEND Internal Medicine
DX: G47.33 Obstructive sleep apnea (adult) (pediatric) (principal); E11.9 Type 2 diabetes mellitus without complications; E66.9 Obesity, unspecified; E78.5 Hyperlipidemia, unspecified; I10 Essential (primary) hypertension; J45.909 Unspecified asthma, uncomplicated; Z79.84 Long term (current) use of oral hypoglycemic drugs; Z79.890 Hormone replacement therapy; Z79.899 Other long term (current) drug therapy; Z86.73 Personal history of transient ischemic attack (TIA), and cerebral infarction without residual deficits; Z99.89 Dependence on other enabling machines and devices; Z98.890 Other specified postprocedural states; Z88.5 Allergy status to narcotic agent; Z79.51 Long term (current) use of inhaled steroids; Z87.891 Personal history of nicotine dependence
CPT/HCPCS: 99212

== ENCOUNTER → 2024-01-21 | Outpatient (CLI) | payer BC ==
[2024-01-21 16:45] VITALS: BP 180/77; PULSE 72; RESP 16; TEMP 97.9
--- NOTE | 2024-01-21 17:02 | P.PN ---
Subjective DATE: 01/21/2024 FOLLOW UP VISIT. Patient with obstructive sleep apnea hypopnea syndrome return to sleep center for follow-up visit. Information from previous visit have been reviewed. Patient is using PAP equipment every night for the whole night, getting PAP supplies in time. The patient does not have significant problems with the mask, PAP unit and humidification. [place] sleepiness scale is 5, which is normal. I checked information from PAP unit. PAP unit pressure 13 cm H2O. Usage is 100% for more then 4 hours, average 7.9 hours per night. Leak is 26 l/m, which is in acceptable range. Apnea Hypopnea Index is 1.8, which is normal. MEDICATIONS:1. Bupropion 150 mg twice a day 2. Crestor 20 mg once a day 3. Desvenlafaxine 50 mg once a day 4. Fenofibrate 160 mg once a day 5. Glipizide 2.5 mg once a day 6. Hydrochlorothiazide 25 mg once a day 7. Losartan 50 mg once a day 8. Metoprolol 100 mg once a day During physical exam: GENERAL: A pleasant patient without any distress. VITAL SIGNS: Please see below, weight 244 pounds, BMI 41.7. HEENT: PERRLA, EOMI.low position of soft palate, Mallapati 3 . NECK: Supple. No JVD. LUNGS: Clear to percussion and to auscultation. Good air exchange. No wheezing or rhonchi. HEART: S1, S2 regular. ABDOMEN: Soft and nontender.[] EXTREMITIES: No clubbing or cyanosis. SCHEDULE MANAGER: Awake, alert, and oriented x3. No focal deficit. Impressions: 1. Obstructive sleep apnea-hypopnea syndrome. Patient demonstrated great compliance with treatment, benefiting from treatment. 2. Obesity, BMI 41.7, patient lost 19 pounds comparing with previous visit. 3. Hypertension. 4. Diabetes mellitus. 5. History of stroke in 2007. 6. History of asthma. 7. Hyperlipidemia. Plan: 1. Continue using PAP equipment every night for the whole night. 2. To change air filter at least 1-2 times per month. 3. PAP unit should stay lower then position of the head. 4. Advised patient to remove all remaining water from humidifier canister daily and make it dry after each usage. Refill canister with fresh distilled water before each usage. 5. Sleep hygiene with regular time in bed for at least 8 hours. 6. Precautions related to driving. No driving if feel any sleepiness. 7. I will maintain prescription for PAP supplies including mask, tube, filters. 8. Follow up visit in 6 months or earlier if patient has any problems. 9. Watching and continue losing weight. Thank you very much for allowing me to participate in the management of your patient. Liang Roth MD, PhD, FAASM. Diplomat of [place], Sleep Medicine Board by [place] Medicine Sales Project Administrator of [facility] [place] Objective - Vital Signs Vital signs: Vital Signs Temp 97.9 F 01/21/24 15:58 Pulse 72 01/21/24 15:58 Resp 16 01/21/24 15:58 BP 180/77 01/21/24 15:58 Pulse Ox 98 01/21/24 15:58 FiO2 Intake & Output 01/20/24 01/21/24 01/21/24 18:59 06:59 18:59 Weight 110.677 kg
== END ==
LOC: 3 N SLEEP 15:46
PROVIDERS: ATTEND Internal Medicine
DX: G47.33 Obstructive sleep apnea (adult) (pediatric) (principal); E66.9 Obesity, unspecified; E11.9 Type 2 diabetes mellitus without complications; E78.5 Hyperlipidemia, unspecified; J45.909 Unspecified asthma, uncomplicated; I10 Essential (primary) hypertension; Z68.41 Body mass index [BMI] 40.0-44.9, adult; Z79.899 Other long term (current) drug therapy; Z86.73 Personal history of transient ischemic attack (TIA), and cerebral infarction without residual deficits; Z99.89 Dependence on other enabling machines and devices; Z88.5 Allergy status to narcotic agent; Z87.891 Personal history of nicotine dependence
CPT/HCPCS: 99212

== ENCOUNTER → 2024-10-05 | Outpatient (CLI) | payer BC ==
[2024-10-05 13:59] VITALS: BP 177/95; PULSE 73; RESP 18; TEMP 98.2
--- NOTE | 2024-10-05 14:24 | P.PROGSL ---
Subjective DATE: 10/05/2024 FOLLOW UP VISIT. Patient with obstructive sleep apnea hypopnea syndrome return to sleep center for follow-up visit. Information from previous visit have been reviewed. Patient is using PAP equipment every night for the whole night, getting PAP supplies in time. The patient does not have significant problems with the mask, PAP unit and humidification. [place] sleepiness scale is 5, which is normal. I checked information from PAP unit. PAP unit pressure 13 cm H2O. Usage is 100% for more then 4 hours, average 8.3 hours per night. Leak is 20 l/m, which is in acceptable range. Apnea Hypopnea Index is 1.5, which is normal. MEDICATIONS: Bupropion 150 mg twice a day, Crestor 20 mg once a day, fenofibrate 160 mg once a day, hydrochlorothiazide 25 mg once a day, losartan 50 mg once a day, metoprolol 100 mg once a day, montelukast 10 mg once a day, Synthroid 75 mcg once a day, albuterol, Dulcolax 5 mg. During physical exam: GENERAL: A pleasant patient without any distress. VITAL SIGNS: Please see below, weight is 218.4 lbs. HEENT: PERRLA, EOMI.low position of soft palate, Mallapati 3. NECK: Supple. No JVD. LUNGS: Clear to percussion and to auscultation. Good air exchange. No wheezing or rhonchi. HEART: S1, S2 regular. ABDOMEN: Soft and nontender.[] EXTREMITIES: No clubbing or cyanosis. CORNER BLOCK CUTTER: Awake, alert, and oriented x3. No focal deficit. Impressions: 1. Obstructive sleep apnea-hypopnea syndrome. Patient demonstrated great compliance with treatment, benefiting from treatment. 2. Obesity, BMI 38.2, patient lost 46 pounds since previous visit. 3. Hypertension. 4. Diabetes mellitus. 5. History of asthma. 6. Hyperlipidemia. 7. History of stroke in 2007. Plan: 1. Continue using PAP equipment every night for the whole night. 2. Sleep hygiene with regular time in bed for at least 7.5-8 hours 3. PAP unit should stay lower then position of the head. 4. Advised patient to remove all remaining water from humidifier canister daily and make it dry after each usage. Refill canister with fresh distilled water before each usage. 5. Watching and continue losing weight. 6. Precautions related to driving. No driving if feel any sleepiness. 7. I will maintain prescription for PAP supplies including mask, tube, filters. 8. Follow up visit in 8 months or earlier if patient has any problems. Thank you very much for allowing me to participate in the management of your patient. Liang Roth MD, PhD, FAASM. Diplomat of [place] [employer] Sleep Medicine, Sleep Medicine Board by [place] [employer] Medicine Research Associate Quality Control [employer] of [facility] [place] Objective - Vital Signs Vital Signs: Vital Signs Temp 98.2 F 10/05/24 13:58 Pulse 73 10/05/24 13:58 Resp 18 10/05/24 13:58 BP 177/95 10/05/24 13:58 Pulse Ox 98 10/05/24 13:58 FiO2 Intake & Output 10/04/24 10/05/24 10/05/24 18:59 06:59 18:59 Weight 98.997 kg Home Medications: Home Medications Medication Instructions Recorded Confirmed Type Albuterol Inhaler [Ventolin Hfa 1 - 2 puff INHALATION RT-Q6H PRN 11/17/16 01/21/24 History Inhaler] Aspirin 81 mg PO HS 11/17/16 01/21/24 History Cinnamon/Chromium 1000mg/400mcg 2 tab PO DAILY 11/17/16 01/21/24 History Desvenlafaxine Succinate [Pristiq] 50 mg PO DAILY 11/17/16 01/21/24 History Fenofibrate [Lofibra] 160 mg PO HS 11/17/16 01/21/24 History Levothyroxine Sodium [Synthroid] 50 mcg PO DAILY 11/17/16 01/21/24 History Losartan [Cozaar] 50 mg PO DAILY 11/17/16 01/21/24 History Metoprolol Succinate (ER) [Toprol 100 mg PO DAILY 11/17/16 01/21/24 History Xl] Montelukast Sodium [Singulair] 10 mg PO HS 11/17/16 01/21/24 History Naltrexone HCl/Bupropion HCl 1 tab PO BID 11/17/16 01/21/24 History [Contrave ER 8-90 mg Tablet] [place]-3 Fatty Acids/Fish Oil [Fish 1 cap PO BID 11/17/16 01/21/24 History Oil 1,000 mg Softgel] Potassium Chloride [Klor-Con 10] 10 meq PO DAILY 11/17/16 01/21/24 History Ubidecarenone [Co Q-10] 200 mg PO HS 11/17/16 01/21/24 History estradioL [Estradiol] 0.5 mg PO DAILY 11/17/16 01/21/24 History glipiZIDE [Glucotrol] 5 mg PO DAILY 11/17/16 01/21/24 History hydroCHLOROthiazide [Hydrodiuril] 25 mg PO DAILY 11/17/16 01/21/24 History Tirzepatide [Zepbound] 2.5 mg SQ WEEKLY 01/21/24 01/21/24 History
== END ==
LOC: 3 N SLEEP 13:36
PROVIDERS: ATTEND Internal Medicine
DX: G47.33 Obstructive sleep apnea (adult) (pediatric) (principal); E66.9 Obesity, unspecified; I10 Essential (primary) hypertension; E78.5 Hyperlipidemia, unspecified; Z68.32 Body mass index [BMI] 32.0-32.9, adult; Z87.09 Personal history of other diseases of the respiratory system; Z86.73 Personal history of transient ischemic attack (TIA), and cerebral infarction without residual deficits; Z88.5 Allergy status to narcotic agent; Z87.891 Personal history of nicotine dependence
CPT/HCPCS: 99212